=== PATIENT | male | born 1955 | race African-American/Black ===

== ENCOUNTER → 2023-09-24 | Outpatient (CLI) | payer MEDICARE, SELFPAY ==
[2023-09-24 10:40] LABS: Lipase 66 U/L (13-75)
--- OUTSIDE RECORDS SUMMARY | 2023-09-24 19:06 | XMS RPT_ITS | CCD ---
Author Name Unknown Address [address] [place] [address] Organization [facility] Care Team Providers Care Dental Scheduler Name Role Phone Yelena Merrill MD Primary Care Provider Yelena Merrill Unavailable MD ROBERT ROJAS Referring Unavailabl MD ROBERT Hines Attending Unavailabl YELENA Larson Primary Care Unavailab YELENA Yoder Referring Unavailab YELENA Yoder Referring Unavailab YELENA Yoder Primary Care Unavailab YELENA Yoder Attending Unavailab YELENA Yoder Primary Care Unavailab YELENA Yoder Primary Care Unavailab CHANTELLE Alvarado Referring Unavailable YELENA MERRILL Primary Care Unavailab CHANTELLE Alvarado Attending Unavailable YELENA MERRILL Primary Care Unavailab YELENA Yoder Attending Unavailab YELENA Yoder Primary Care Unavailab YELENA Yoder Attending Razaab taina Allergies Allergy Classification Reported Allergen(s) Allergy Type Date of Onset Reaction(s) Facility (15 sources) Lisinopril; Translations: [LISINOPRIL] Drug Allergy 10-28-2012 Cough [facility] Work Phone: (15 sources) metFORMIN; Translations: [METFORMIN] Drug Allergy 10-28-2012 Diarrhea, GI Upset [facility] Work Phone: Medications Current Medications Medication Drug Class(es) Dates Sig (Normalized) Sig (Original) allopurinol 300 mg oral tablet (14 sources) Xanthine Oxidase Inhibitor Start: 02-20-2023 End: 2023 take 1 tablet by mouth once daily allopurinol (ZYLOPRIM) 300 mg tablet Take 1 tablet by mouth once daily. 90 tablet 1 02/20/2023 2023 Active Completed/Discontinued Medications Medication Drug Class(es) Dates Sig (Normalized) Sig (Original) acetaminophen 500 mg oral capsule (14 sources) Acetaminophen 50 0 mg cap Take 500 mg by mouth as needed. 0 Active Problems Active Problems Problem Classification Problem Date Documented Da te Episodic/Chronic Acute and unspecified renal failure (2 sources) Acute injury of kidney; Translations: [Acute kidney failure, unspecified] Onset: 08-18-2023 Episodic Diabetes mellitus without complication (18 sources) Type 2 diabetes mellitus; Translations: [Type 2 diabetes mellitus without complications] Onset: 01-06-2023 Chronic Disorders of lipid metabolism (16 sources) Hyperlipidemia; Translations: [Hyperlipidemia, unspecified] Onset: 01-06-2023 Chronic Essential hypertension (17 sources) Essential hypertension; Translations: [Essential (primary) hypertension] Onset: 01-06-2023 Chronic Genitourinary symptoms and ill-defined conditions (1 source) Nocturia; Translations: [Nocturia] Episodic Gout and other crystal arthropathies (16 sources) Chronic gout without tophus; Translations: [Chronic gout, unspecified, without tophus (tophi)] Onset: 01-06-2023 Chronic Hyperplasia of prostate (15 sources) Benign prostatic hyperplasia; Translations: [Benign prostatic hyperplasia without lower urinary tract symptoms] Onset: 01-06-2023 01-06-2023 Chronic Open wounds of extremities (4 sources) Injury of lower extremity; Translations: [Unspecified open wound, right lower leg, initial encounter] 03-19-2023 Episodic Other connective tissue disease (1 source) Pain of right lower leg; Translations: [Pain in right lower leg] 04-03-2023 Episodic Other diseases of veins and lymphatics (13 sources) Stasis dermatitis; Translations: [Venous insufficiency (chronic) (peripheral)] Onset: 03-19-2023 03-19-2023 Episodic Other liver diseases (2 sources) Alkaline phosphatase raised; Translations: [Abnormal levels of other serum enzymes] Episodic Other male genital disorders (1 source) Male erectile dysfunction, unspecified; Translations: [Erectile dysfunction] Chronic Other nutritional; endocrine; and metabolic disorders (15 sources) Obesity; Translations: [Other obesity due to excess calories] Onset: 01-06-2023 Chronic Other nutritional; endocrine; and metabolic disorders (1 source) Other obesity due to excess calories; Translations: [Class 1 obesity due to excess calories with serious comorbidity and body mass index (BMI) of 33.0 to 33.9 in adult] Onset: 01-06-2023 Chronic Other nutritional; endocrine; and metabolic disorders (1 source) Body mass index (BMI) 33.0-33.9, adult; Translations: [Class 1 obesity due to excess calories with serious comorbidity and body mass index (BMI) of 33.0 to 33.9 in adult] Onset: 01-06-2023 Chronic Other skin disorders (2 sources) Eruption; Translations: [Rash and other nonspecific skin eruption] Episodic Phlebitis; thrombophlebitis and thromboembolism (18 sources) Chronic deep venous thrombosis of lower extremity; Translations: [Chronic embolism and thrombosis of unspecified deep veins of unspecified lower extremity] Onset: 01-06-2023 Chronic Residual codes; unclassified (15 sources) Obstructive sleep apnea syndrome; Translations: [Obstructive sleep apnea (adult) (pediatric)] Onset: 01-06-2023 Chronic Residual codes; unclassified (2 sources) Obstructive sleep apnea (adult) (pediatric); Translations: [RANDOLPH (obstructive sleep apnea)] Onset: 01-06-2023 Chronic Residual codes; unclassified (1 source) Dependence on other enabling machines and devices; Translations: [RANDOLPH on CPAP] Onset: 01-06-2023 Chronic Past or Other Problems Problem Classification Problem Date Documented Date Episodic/Chronic Fluid and electrolyte disorders (2 sources) Hyperkalemia; Translations: [Hyperkalemia] Onset: 01-20-2023 Episodic Other connective tissue disease (16 sources) Swelling of right lower limb; Translations: [Other specified soft tissue disorders] Onset: 01-06-2023 Episodic Other connective tissue disease (1 source) Other specified soft tissue disorders; Translations: [Right leg swelling] Onset: 01-06-2023 Episodic Other diseases of veins and lymphatics (1 source) Venous insufficiency (chronic) (peripheral); Translations: [Venous stasis dermatitis of right lower extremity] Onset: 03-19-2023 Episodic Other liver diseases (1 source) Abnormal levels of other serum enzymes; Translations: [Elevated alkaline phosphatase level] Onset: 01-20-2023 Episodic Other screening for suspected conditions (not mental disorders or infectious disease) (20 sources) Raised prostate specific antigen; Translations: [Elevated prostate specific antigen [PSA]] Onset: 01-06-2023 Episodic Other skin disorders (1 source) Rash and other nonspecific skin eruption; Translations: [Rash] Onset: 01-06-2023 Episodic Results Test Name Value Interpretation Reference Range Facil ity Vital Signs Date Time Vital Sign Value Performing Clinician Faci lity 03-19-2023 16:01-0400 Body height 182.9 cm Yelena Merrill MD Work Phone: [facility] 03-19-2023 16:01-0400 Body weight 109.32 kg Yelena Merrill MD Work Phone: [facility] 03-19-2023 16:01-0400 Diastolic blood pressure 82 mm[Hg] Yelena Merrill MD Work Phone: [facility] 03-19-2023 16:01-0400 Heart rate 76 /min Yelena Merrill MD Work Phone: [facility] 03-19-2023 16:01-0400 Respiratory rate 16 /min Yelena Merrill MD Work Phone: [facility] 03-19-2023 16:01-0400 Systolic blood pressure 126 mm[Hg] Yelena Merrill MD Work Phone: [facility] 02-12-2023 15:05-0400 Body height 180.34 cm Yelena Merrill Work Phone: [facility] Work Phone: 02-12-2023 15:05-0400 Body mass index (BMI) [Ratio] 36.26 kg/m2 Yelena Merrill Work Phone: [facility] Work Phone: 02-12-2023 15:05-0400 Body surface area Derived from formula 2.36 m2 Yelena Merrill Work Phone: [facility] Work Phone: 02-12-2023 15:05-0400 Body weight 117.94 kg Yelena Merrill Work Phone: [facility] Work Phone: 02-12-2023 15:05-0400 Respiratory rate 16 /min Yelena Merrill Work Phone: [facility] Work Phone: 02-04-2023 16:33-0400 Body weight 111.04 kg Yelena Merrill MD Work Phone: [facility] 02-04-2023 16:33-0400 Diastolic blood pressure 80 mm[Hg] Yelena Merrill MD Work Phone: [facility] 02-04-2023 16:33-0400 Heart rate 77 /min Yelena Merrill MD Work Phone: [facility] 02-04-2023 16:33-0400 Respiratory rate 16 /min Yelena Merrill MD Work Phone: [facility] 02-04-2023 16:33-0400 SaO2% (BldA) [Mass fraction] 98 % Yelena Merrill MD Work Phone: [facility] 02-04-2023 16:33-0400 Systolic blood pressure 136 mm[Hg] Yelena Merrill MD Work Phone: [facility] 01-06-2023 13:27-0400 Body height 182.9 cm Yelena Merrill MD Work Phone: [facility] 01-06-2023 13:27-0400 Body weight 112.4 kg Yelena Merrill MD Work Phone: [facility] 01-06-2023 13:27-0400 Diastolic blood pressure 76 mm[Hg] Yelena Merrill MD Work Phone: [facility] 01-06-2023 13:27-0400 Heart rate 64 /min Yelena Merrill MD Work Phone: [facility] 01-06-2023 13:27-0400 Respiratory rate 16 /min Yelena Merrill MD Work Phone: [facility] 01-06-2023 13:27040 SaO2% (BldA) [Mass fraction] 97 % Yelena Merrill MD Work Phone: [facility] 01-06-2023 13:27-0400 Systolic blood pressure 138 mm[Hg] Yelena Merrill MD Work Phone: [facility] Encounters Encounter Date Encounter Type Care Provider Facility Start: 08-18-2023 End: 2023 ambulatory YELENA MERRILL Facility:[facility] Start: 06-09-2023 Refill Yelena Merrill MD Work Phone: [facility] [place] Plan of Treatment Date Care Activity Detail Author Start: 01-07-2028 PROSTATE CANCER SCRE ENING DISCUSSION PROSTATE CANCER SCREENING DISCUSSION [facility] Start: 01-21-2026 COLOGUARD (FIT-DNA) COLOGUARD (FIT-D NA) [facility] Start: 01-21-2026 COLORECTAL CANCER SCREENING COLORECTAL CANCER SCREENING [facility] Start: 04-21-2024 Hepatitis C antibody , confirmatory test Dilated Retinal Exam [facility] Start: 03-19-2024 ANNUAL PCP TEAM FIRE REGULATOR GILA DISEASE VISIT ANNUAL PCP TEAM CHRONIC DISEASE VISIT [facility] Start: 02-05-2024 3 comp foot exam completed DIABETIC FOOT EXAM [facility] Start: 02-05-2024 ANNUAL PCP TEAM FIRE REGULATOR GILA DISEASE VISIT ANNUAL PCP TEAM CHRONIC DISEASE VISIT [facility] Start: 01-07-2024 ANNUAL PCP TEAM FIRE REGULATOR GILA DISEASE VISIT ANNUAL PCP TEAM CHRONIC DISEASE VISIT [facility] Start: 01-07-2024 COVID-19 VACCINE (#1) COVID-19 VACCI NE (#1) [facility] Payers Date Payer Category Payer Medicare DEVOTED MEDICARE [facility] HMO [id number] 2022-Present [phone] [address] [place] [address] HMO [id number] 2022 Unknown [id number] 1955 Unknown [id number] Unknown [employer]^L^[id number] Social History Date Type Detail Facility Start: 01-06-2023 Tobacco smoking stat us NHIS Never smoked tobacco [facility] Start: 01-06-2023 Tobacco use and exposure Smokeless tobacco non-user [facility] Start: 01-06-2023 End: 03-19-2023 Alcohol intake Ex-drinker (finding) [facility] Start: 1955 Sex Assigned At Male [facility] Start: 01-06-2023 End: 02-04-2023 History of Social function [facility] Work Phone: Start: 01-06-2023 End: 02-04-2023 Tobacco use panel [facility] Work Phone: Adult Depression Screening Assessment 0 [facility] Work Phone: Start: 01-06-2023 Gender identity Identifies as male gender (finding) [facility] Start: 01-06-2023 Sexual orientation Heterosexual (fin ding) [facility] Medical Equipment Procedure Code Equipment Code Equipment Origin al Text Equipment Identifier Dates Start: 01-06-2023 End: 05-06-2023 Clinical Notes 08-16-2022 to 08-18-2023 Telephone Encounter - Debora Knox LPN - 06/09/2023 2:02 PM ESTTelephone Encounter - Chiara Luz LPN - 05/06/2023 10:08 AM Yelena Pope MD - 03/19/2023 4:13 PM EDT Note Date & Type Note Facility 08-18-2023 Note HNO ID: [id number] Author: CHANTELLE DU APRN.CUSTOMER ACCOUNT COORDINATOR Service: ? Author Type: Nurse Practitioner Type: Progress Notes Filed: 08/18/2023 16:01 Note Text: 08/18/2023 Patient presents with: F/U 6 months SUBJECTIVE: This is a 67 year old that is here today for Above Complaints. DIABETES MELLITUS: Since our last visit he denies excessive thirst or increased frequency of urination, chest pain or dyspnea , numbness, tingling or pain in extremities, new or unusual visual symptoms, low sugar/hypoglycemic reactions, weight loss/gain, lightheadedness/dizziness, and bowel changes/loose stools. Follows a diabetic diet most of the time. He is compliant with medication(s) and is tolerating med(s) without any side effects. He reports checking his glucose on a twice a day schedule with sugars in the <200 range. Patient's last HgA1C was Hemoglobin A1C (%) Date Value 01/06/2023 6.8 05/08/2022 6.5 ) Last Ophthalmology exam was within the past 12 months HTN: Patient is compliant with meds Yes Monitors bp at home: Yes. Denies side effects: Yes. Chest pain: No. Dyspnea: No. Edema: Yes-chronic RLE Palpitations: No. Syncope: No. Headache: No. Dizziness: No. HYPERLIPIDEMIA: Patient is taking medications: Yes. Patient is watching diet: Yes. Patient denies myalgias: Yes. Patient denies gi upset: Yes BPH/Elevated PSA: followed up with Dr. Rojas, urologist on 02/12/2023. Patient reports he will just monitor his PSA level. Reports he will need 6 month follow-up. Hx of DVT. Taking eliquis as prescribed without side effects. Denies bleeding symptoms RANDOLPH: needs order for supplies. Has not been using due to needing supplies Gout: taking allopurinol as prescribed without side effects. No gout flares Wound to right lower leg has healed. Were not able to get wound care approved through insurance. Did complete venous ultrasound at however it does not look like results were ever received. Had previously been ordered Right quadrat ultrasound due to elevated alkaline phos and US of kidney and bladder due worsening kidney function however he never completed them PAST MEDICAL HISTORY Diagnosis Date BPH (benign prostatic hyperplasia) Chronic deep vein thrombosis (DVT) (HCC) right LE. on anticoagulation Chronic stasis dermatitis of right lower extremity Diabetes mellitus type II (HCC) Elevated prostate specific antigen (PSA) Essential hypertension Gout History of DVT (deep vein thrombosis) 2020 Right leg Hyperlipidemia Obesity RANDOLPH on CPAP Right leg swelling Chronic since DVT 2020 Venous stasis dermatitis of right lower extremity ALLERGIES Metformin and Lisinopril MEDICATIONS Current Outpatient Medications Medication Sig apixaban (ELIQUIS) 2.5 mg tab(s) Take 1 tablet by mouth two times a day. cyclobenzaprine (FLEXERIL) 10 mg tablet Take 1 tablet by mouth two times a day as needed for muscle spasm. candesartan (ATACAND) 16 mg tablet Take 1 tablet by mouth once daily. blood sugar diagnostic (BLOOD GLUCOSE TEST) test strip Test blood sugar(s) 1-2 times daily. Dx: Type 2 DM - Controlled E11.9 Insulin: No labetalol (TRANDATE) 200 mg tablet Take 1 tablet by mouth once daily. allopurinol (ZYLOPRIM) 300 mg tablet Take 1 tablet by mouth once daily. glipiZIDE (GLUCOTROL) 10 mg tablet Take 1 tablet by mouth twice daily before meals. atorvastatin (LIPITOR) 40 mg tablet Take 40 mg by mouth once daily. MULTIVIT [id number] 1-DHA ORAL Take by mouth. ubidecarenone/vitamin E mixed (COQ10 SG 100 ORAL) Take 1 capsule by mouth. 300mg daily Acetaminophen 500 mg cap Take 500 mg by mouth as needed. saw palmetto 320 mg capsule Take 1 capsule by mouth once daily. CHONDROITIN SULFATE A ORAL Take by mouth. Ascorbic Acid (VITAMIN C) 500 mg chew Take 500 mg by mouth once daily. sour wood extract (TART WOOD EXTRACT ORAL) Take 3,000 mg by mouth once daily. COLLAGEN MISC 0.5 Scoops once daily. Lancets lancets Test blood sugar(s) 1 times daily. Dx: Type 2 DM - Controlled E11.9 Insulin: No CPAP/BIPAP/OTHER Type .CPAPSettings into a note to see current settings/supplies/DME information. No current facility-administered medications for this visit. Medications and allergies reviewed by this provider. SOCIAL HISTORY Social History Tobacco Use Smoking status: Never Smokeless tobacco: Never Substance Use Topics Alcohol use: Not Currently Drug use: Never REVIEW OF SYSTEMS All other reviewed and negative other than HPI. OBJECTIVE: BP 136/88 Pulse 81 Resp 16 Wt 113 kg (249 lb 3.2 oz) SpO2 94% BMI 33.80 kg/m? . Vital signs reviewed by this provider. APPEARANCE Well appearing, alert, in no acute distress, well-hydrated, well nourished. EYES conjunctiva and sclera normal. HEART RRR with normal S1 and S2, no murmurs, no gallops, no JVD appreciated LUNG clear to auscultation. No wheezes, rhonchi or rales EXTREMITIES Chronic edema to right lower extr (more content not included)... [facility] 06-09-2023 Miscellaneous Notes reports pt only takes the Flexeril up to 2 times daily if needed. Debora Knox LPN Patient has been identified by name and date of : Yes, Provider Dr. Merrill Date 06/09/23 Time 2:04 pm Spouse phones for refill(s): Requested Prescriptions Pending Prescriptions Disp Refills apixaban (ELIQUIS) 2.5 mg tab(s) 30 tablet 5 Sig: Take 1 tablet by mouth two times a day. cyclobenzaprine (FLEXERIL) 10 mg tablet 60 tablet 3 Sig: Take by mouth two times a day as needed for muscle spasm. Date of last office visit in primary care: 03/19/2023 Date of next office visit in primary care: 08/18/2023 Last 2 Encounter Wt Readings: Date: Wt: 03/19/2023 109.3 kg (241 lb) 02/04/2023 111 kg (244 lb 12.8 oz) Previous labs/tests for medication: Not applicable Please advise. Thank you. Debora Knox LPN. documented in this encounter [facility] 05-06-2023 Miscellaneous Notes Message left on patient's VM advising rx for test strips sent and would need an OV to discuss BPH rx for new medication. Rx sent for test strips. Needs OV if he wants to discuss new rx for BPH so we can go over options, risks, and benefits. documented in this encounter [facility] 04-18-2023 Miscellaneous Notes Patient sent [employer] message that they are going back through insurance and resubmitting another prior auth so they can go through [facility]. New order placed. Please fax as requested. Spoke with pt's and he needs a new referral to out of network wound care. The old referral is for [facility] and this will not work. Please fax new one to [facility]. Please call when this has been done. So she can call to get apt. Debora Knox LPN Left vm for patient to return call to nurse for provider's message. Im not sure what he needs for this. We can fax the previous referral to [place] if that is what is required. Spouse returned call and given provider's message below with verbalized understanding. asking pcp office to file a new out of network authorization for [facility]. Please advise . Reviewed. Spoke ou wound center and they advised our initial referral for [facility] is approved but insurance itself is not approving providers at wound center all providers are out of network and do not take devoted medicare. Patient can not be seen there since not accepted for that department with specific providers. Next option is patient going to [facility]. No peer to peer to be done since providers out of network Left message please advise above and help schedule with amada Sanchez Ma I did not receive anything about peer to peer for this. Can they fax what they need completed. Patient Bianca calling having issues with [facility] can not get appt for set up. She is getting the run around, the insurance [employer] gave them special permission to go since out of network, now Wound Center is saying need peer to peer done. spoke to Rebecca and Olayinka told her they would have to pay brewer at [facility], can not get them to call back at all. Please advise documented in this encounter [facility] 04-18-2023 Miscellaneous Notes Rx sent as requested. Patient phones requesting refills as follows: Requested Prescriptions Pending Prescriptions Disp Refills mupirocin (BACTROBAN) 2 % ointment 30 g 0 Sig: Apply to affected area twice daily for 14 days. [facility]WIN 03/19/23 NOV 08/18/23 Please review and advise. Chiara Luz LPN documented in this encounter [facility] 04-03-2023 Miscellaneous Notes Revised order forwarded to rosendo at [facility] as requested. Order approved. Rosendo from pre registration at [place] calling and states that pt is scheduled for a venous ultrasound on FridayApr 07. With the 2 current diagnoses on the order, ultrasound will not be covered. Viewed Dr. Merrill's office note on 03/19 and noted patient has both pain and swelling in his right lower leg. Added those two codes and now will be covered. Order pended. Please sign order and fax back to Rosendo at [phone]. documented in this encounter [facility] 03-20-2023 Miscellaneous Notes There is nothing else you need to do. The order has been sent. Do I need to do anything else for this then? reports her insurance tells her they will cover [facility] Wound Center, since nearest in network center [place] and if pcp writes medically necessary on insurance referral. Placed insurance referral. Faxed order and face sheet to [facility] at fax # [phone]. Emailed referral information to [facility] and pre-access. documented in this encounter [facility] 03-19-2023 Note HNO ID: [id number] Author: Yelena Merrill MD Service: ? Author Type: Physician Type: Progress Notes Filed: 03/19/2023 4:48 PM Note Text: Chief Complaint Patient presents with: Wound Check HPI Julian Markham Sr. is a 67 year old male who presents here today for Above Complaints.. Patient complaining of right LE seeping serous fluid which started a few days after our last OV. No ulceration from the area, just has faint red spot which slowly seeps yellow/clear fluid. Has pain in the area that feels like burning and keeps him up at night. Has tried treating with aquaphor and clorimazole cream without improvement. Using tylenol for pain. Denies fever/chills, spreading redness, streaking, warmth to touch, purulent drainage. Past medical history, appointments, medications, allergies reviewed. Previous Medical History PAST MEDICAL HISTORY Diagnosis Date BPH (benign prostatic hyperplasia) Chronic deep vein thrombosis (DVT) (HCC) right LE. on anticoagulation Diabetes mellitus type II (HCC) Elevated prostate specific antigen (PSA) Essential hypertension Gout History of DVT (deep vein thrombosis) 2020 Right leg Hyperlipidemia Obesity RANDOLPH on CPAP Right leg swelling Chronic since DVT 2020 Venous stasis dermatitis of right lower extremity Previous Surgical History PAST SURGICAL HISTORY Procedure Laterality Date PAST SURGICAL HISTORY OF Right 1990 knee surgery for gout PAST SURGICAL HISTORY OF 2019 Biopsy of prostate-benign Family History FAMILY HISTORY Problem Relation Age of Onset Gout Mother Diabetes Mother Hypertension Mother Hyperlipidemia Mother Stroke Mother Heart Attack Maternal Grandfather No Known Problems Daughter No Known Problems Daughter Autism Son Patient Allergies ALLERGIES Allergen Reactions Metformin Diarrhea, GI Upset diarrhea Lisinopril Cough Current Medications Current Outpatient Medications on File Prior to Visit Medication Sig blood sugar diagnostic (CONTOUR NEXT TEST STRIPS) test strip Use as instructed labetalol (TRANDATE) 200 mg tablet Take 1 tablet by mouth once daily. allopurinol (ZYLOPRIM) 300 mg tablet Take 1 tablet by mouth once daily. glipiZIDE (GLUCOTROL) 10 mg tablet Take 1 tablet by mouth twice daily before meals. candesartan (ATACAND) 16 mg tablet Take 16 mg by mouth once daily. cyclobenzaprine (FLEXERIL) 10 mg tablet Take by mouth three times daily as needed for muscle spasm. apixaban (ELIQUIS) 2.5 mg tab(s) Take by mouth twice daily. atorvastatin (LIPITOR) 40 mg tablet Take 40 mg by mouth once daily. MULTIVIT [id number] 1-DHA ORAL Take by mouth. ubidecarenone/vitamin E mixed (COQ10 SG 100 ORAL) Take 1 capsule by mouth. 300mg daily Acetaminophen 500 mg cap Take 500 mg by mouth as needed. saw palmetto 320 mg capsule Take 1 capsule by mouth once daily. CHONDROITIN SULFATE A ORAL Take by mouth. Ascorbic Acid (VITAMIN C) 500 mg chew Take 500 mg by mouth once daily. sour wood extract (TART WOOD EXTRACT ORAL) Take 3,000 mg by mouth once daily. COLLAGEN MISC 0.5 Scoops once daily. blood sugar diagnostic (BLOOD GLUCOSE TEST) test strip Test blood sugar(s) 1 times daily. Dx: Type 2 DM - Controlled E11.9 Insulin: No Lancets lancets Test blood sugar(s) 1 times daily. Dx: Type 2 DM - Controlled E11.9 Insulin: No CPAP/BIPAP/OTHER Type .CPAPSettings into a note to see current settings/supplies/DME information. No current facility-administered medications on file prior to visit. Social History Social History Tobacco Use Smoking status: Never Smokeless tobacco: Never Substance Use Topics Alcohol use: Not Currently Drug use: Never Review of Symptoms REVIEW OF SYSTEMS See HPI EXAM: BP 126/82 Pulse 76 Resp 16 Ht 182.9 cm (6') Wt 109.3 kg (241 lb) BMI 32.69 kg/m? General Appearance: Well appearing, alert, in no acute distress, well-hydrated, well nourished.. Skin: Stasis dermatitis of his left lower leg 2/2 previous DVT with 7 x 8 cm area of pink colored skin which is slowly draining serous fluid. TTP without warmth to touch. No cellulitis or abscess noted. No streaking. Health Maintenance List DILATED RETINAL EXAM Never done BP CONTROLLED (<130/80) Never done ADVANCE DIRECTIVE DISCUSSION Never done DTAP,TDAP,TD(1 - Tdap) due on 01/07/2024 HEPATITIS C SCREENING due on 01/07/2024 HIV SCREENING due on 01/07/2024 SHINGRIX VACCINE(1 of 2) due on 01/07/2024 COVID-19 VACCINE(1) due on 01/07/2024 PNEUMOCOCCAL: 65+(1 - PCV) due on 01/07/2024 INFLUENZA(1) due on 03/28/2023 HBA1C due on 07/08/2023 URINE ALBUMIN:CREATININE RATIO due on 01/07/2024 LDL CHOLESTEROL due on 01/07/2024 DIABETIC FOOT EXAM due on 02/05/2024 ANNUAL PCP TEAM CHRONIC DISEASE VISIT due on 02/05/2024 COLORECTAL CANCER SCREENING due on 01/21/2026 PROSTATE CANCER SCREENING DISCUSSION due on 01/07/2028 DEPRESSION ASSESSMENT Completed ASSESSMENT/PLAN: 1. Venous (more content not included)... [facility] 03-19-2023 History of Presen t illness Narrative Chief Complaint Patient presents with: Wound Check HPI Julian Markham Sr. is a 67 year old male who presents here today for Above Complaints.. Patient complaining of right LE seeping serous fluid which started a few days after our last OV. No ulceration from the area, just has faint red spot which slowly seeps yellow/clear fluid. Has pain in the area that feels like burning and keeps him up at night. Has tried treating with aquaphor and clorimazole cream without improvement. Using tylenol for pain. Denies fever/chills, spreading redness, streaking, warmth to touch, purulent drainage. Past medical history, appointments, medications, allergies reviewed. Previous Medical History PAST MEDICAL HISTORY Diagnosis Date BPH (benign prostatic hyperplasia) Chronic deep vein thrombosis (DVT) (HCC) right LE. on anticoagulation Diabetes mellitus type II (HCC) Elevated prostate specific antigen (PSA) Essential hypertension Gout History of DVT (deep vein thrombosis) 2020 Right leg Hyperlipidemia Obesity RANDOLPH on CPAP Right leg swelling Chronic since DVT 2020 Venous stasis dermatitis of right lower extremity Previous Surgical History PAST SURGICAL HISTORY Procedure Laterality Date PAST SURGICAL HISTORY OF Right 1990 knee surgery for gout PAST SURGICAL HISTORY OF 2019 Biopsy of prostate-benign Family History FAMILY HISTORY Problem Relation Age of Onset Gout Mother Diabetes Mother Hypertension Mother Hyperlipidemia Mother Stroke Mother Heart Attack Maternal Grandfather No Known Problems Daughter No Known Problems Daughter Autism Son Patient Allergies ALLERGIES Allergen Reactions Metformin Diarrhea, GI Upset diarrhea Lisinopril Cough Current Medications Current Outpatient Medications on File Prior to Visit Medication Sig blood sugar diagnostic (CONTOUR NEXT TEST STRIPS) test strip Use as instructed labetalol (TRANDATE) 200 mg tablet Take 1 tablet by mouth once daily. allopurinol (ZYLOPRIM) 300 mg tablet Take 1 tablet by mouth once daily. glipiZIDE (GLUCOTROL) 10 mg tablet Take 1 tablet by mouth twice daily before meals. candesartan (ATACAND) 16 mg tablet Take 16 mg by mouth once daily. cyclobenzaprine (FLEXERIL) 10 mg tablet Take by mouth three times daily as needed for muscle spasm. apixaban (ELIQUIS) 2.5 mg tab(s) Take by mouth twice daily. atorvastatin (LIPITOR) 40 mg tablet Take 40 mg by mouth once daily. MULTIVIT [id number] 1-DHA ORAL Take by mouth. ubidecarenone/vitamin E mixed (COQ10 SG 100 ORAL) Take 1 capsule by mouth. 300mg daily Acetaminophen 500 mg cap Take 500 mg by mouth as needed. saw palmetto 320 mg capsule Take 1 capsule by mouth once daily. CHONDROITIN SULFATE A ORAL Take by mouth. Ascorbic Acid (VITAMIN C) 500 mg chew Take 500 mg by mouth once daily. sour wood extract (TART WOOD EXTRACT ORAL) Take 3,000 mg by mouth once daily. COLLAGEN MISC 0.5 Scoops once daily. blood sugar diagnostic (BLOOD GLUCOSE TEST) test strip Test blood sugar(s) 1 times daily. Dx: Type 2 DM - Controlled E11.9 Insulin: No Lancets lancets Test blood sugar(s) 1 times daily. Dx: Type 2 DM - Controlled E11.9 Insulin: No CPAP/BIPAP/OTHER Type .CPAPSettings into a note to see current settings/supplies/DME information. No current facility-administered medications on file prior to visit. Social History Social History Tobacco Use Smoking status: Never Smokeless tobacco: Never Substance Use Topics Alcohol use: Not Currently Drug use: Never Review of Symptoms REVIEW OF SYSTEMS See HPI EXAM: BP 126/82 Pulse 76 Resp 16 Ht 182.9 cm (6') Wt 109.3 kg (241 lb) BMI 32.69 kg/m General Appearance: Well appearing, alert, in no acute distress, well-hydrated, well nourished.. Skin: Stasis dermatitis of his left lower leg 2/2 previous DVT with 7 x 8 cm area of pink colored skin which is slowly draining serous fluid. TTP without warmth to touch. No cellulitis or abscess noted. No streaking. Health Maintenance List DILATED RETINAL EXAM Never done BP CONTROLLED (<130/80) Never done ADVANCE DIRECTIVE DISCUSSION Never done DTAP,TDAP,TD(1 - Tdap) due on 01/07/2024 HEPATITIS C SCREENING due on 01/07/2024 HIV SCREENING due on 01/07/2024 SHINGRIX VACCINE(1 of 2) due on 01/07/2024 COVID-19 VACCINE(1) due on 01/07/2024 PNEUMOCOCCAL: 65+(1 - PCV) due on 01/07/2024 INFLUENZA(1) due on 03/28/2023 HBA1C due on 07/08/2023 URINE ALBUMIN:CREATININE RATIO due on 01/07/2024 LDL CHOLESTEROL due on 01/07/2024 DIABETIC FOOT EXAM due on 02/05/2024 ANNUAL PCP TEAM CHRONIC DISEASE VISIT due on 02/05/2024 COLORECTAL CANCER SCREENING due on 01/21/2026 PROSTATE CANCER SCREENING DISCUSSION due on 01/07/2028 DEPRESSION ASSESSMENT Completed ASSESSMENT/PLAN: 1. Venous stasis dermatitis of right lower extremity - ICD9: 454.1, ICD10: I87.2 (primary diagnosis) Wound of right LE 2/2 stasis dermatitis and chronic leg swelling. States he is unable to wear compression stockings and has not been elevating his leg at home. Will start on bactroban ointment BID and refer to wound care for further evaluation. Discussed covering with non adherent pad at work to prevent contamination and worsening infection. Red flags for re-assessment reviewed with patient in detail. - MUPIROCIN 2 % TOPICAL OINTMENT - CONSULT TO SKIN CARE TEAM - US VENOUS REFLUX BILATERAL 2. Wound of right lower extremity, initial encounter - ICD9: 894.0, ICD10: S81.801A See above. - MUPIROCIN 2 % TOPICAL OINTMENT - CONSULT TO SKIN CARE TEAM - US VENOUS REFLUX BILATERAL Yelena Merrill MD documented in this encounter [facility] 02-26-2023 Miscellaneous Notes Prescription for strips sent. Chantelle Du APRN.CUSTOMER ACCOUNT COORDINATOR Patient's spouse, Bianca calling today to request a prescription for test strips for testing 2 x/daily. Test strips are Contour Next. Please call prescription into [facility]. documented in this encounter [facility] 02-04-2023 Note HNO ID: [id number] Author: Yelena Merrill MD Service: ? Author Type: Physician Type: Progress Notes Filed: 02/04/2023 7:21 PM Note Text: Chief Complaint Patient presents with: Follow Up: DM HPI Julian Markham Sr. is a 67 year old male who presents here today for Above Complaints.. DIABETES MELLITUS: Mr. Markham was last seen 1 month ago. Since our last visit he denies excessive thirst or increased frequency of urination, numbness, tingling or pain in extremities, new or unusual visual symptoms, low sugar/hypoglycemic reactions, and weight loss/gain. Follows a diabetic diet some of the time. He is compliant with medication(s) and is tolerating med(s) without any side effects. He reports checking his glucose on a infrequent to not at all basis, but just got meter and supplies. Patient's last HgA1C was Hemoglobin A1C (%) Date Value 01/06/2023 6.8 05/08/2022 6.5 ) Last Ophthalmology exam was more than 12 months ago. Last Podiatry exam was more than 12 months ago. Right riley rash resolved with clotrimazole. No longer draining. Still wearing compression stockings on a daily basis. PSA elevated on last check. Has appointment with urology Dr. Zamora in [place] next week. Denies urinary symptoms. Past medical history, appointments, medications, allergies reviewed. Previous Medical History PAST MEDICAL HISTORY Diagnosis Date BPH (benign prostatic hyperplasia) Diabetes mellitus type II (HCC) Elevated prostate specific antigen (PSA) Essential hypertension Gout History of DVT (deep vein thrombosis) 2020 Right leg Hyperlipidemia Obesity RANDOLPH on CPAP Right leg swelling Chronic since DVT 2020 Venous stasis dermatitis of right lower extremity Previous Surgical History PAST SURGICAL HISTORY Procedure Laterality Date PAST SURGICAL HISTORY OF Right 1990 knee surgery for gout PAST SURGICAL HISTORY OF 2019 Biopsy of prostate-benign Family History FAMILY HISTORY Problem Relation Age of Onset Gout Mother Diabetes Mother Hypertension Mother Hyperlipidemia Mother Stroke Mother Heart Attack Maternal Grandfather No Known Problems Daughter No Known Problems Daughter Autism Son Patient Allergies ALLERGIES Allergen Reactions Metformin Diarrhea, GI Upset diarrhea Lisinopril Cough Current Medications Current Outpatient Medications on File Prior to Visit Medication Sig candesartan (ATACAND) 16 mg tablet Take 16 mg by mouth once daily. cyclobenzaprine (FLEXERIL) 10 mg tablet Take by mouth three times daily as needed for muscle spasm. apixaban (ELIQUIS) 2.5 mg tab(s) Take by mouth twice daily. glipiZIDE (GLUCOTROL) 10 mg tablet Take 10 mg by mouth twice daily before meals. atorvastatin (LIPITOR) 40 mg tablet Take 40 mg by mouth once daily. labetalol (TRANDATE) 200 mg tablet Take 200 mg by mouth once daily. allopurinol (ZYLOPRIM) 300 mg tablet Take 300 mg by mouth once daily. MULTIVIT [id number] 1-DHA ORAL Take by mouth. ubidecarenone/vitamin E mixed (COQ10 SG 100 ORAL) Take 1 capsule by mouth. 300mg daily Acetaminophen 500 mg cap Take 500 mg by mouth as needed. saw palmetto 320 mg capsule Take 1 capsule by mouth once daily. CHONDROITIN SULFATE A ORAL Take by mouth. Ascorbic Acid (VITAMIN C) 500 mg chew Take 500 mg by mouth once daily. sour wood extract (TART WODO EXTRACT ORAL) Take 3,000 mg by mouth once daily. COLLAGEN MISC 0.5 Scoops once daily. blood sugar diagnostic (BLOOD GLUCOSE TEST) test strip Test blood sugar(s) 1 times daily. Dx: Type 2 DM - Controlled E11.9 Insulin: No Lancets lancets Test blood sugar(s) 1 times daily. Dx: Type 2 DM - Controlled E11.9 Insulin: No CPAP/BIPAP/OTHER Type .CPAPSettings into a note to see current settings/supplies/DME information. No current facility-administered medications on file prior to visit. Social History Social History Tobacco Use Smoking status: Never Smokeless tobacco: Never Substance Use Topics Alcohol use: Not Currently Drug use: Never Review of Symptoms REVIEW OF SYSTEMS GENERAL: No weight loss, malaise or fevers RESPIRATORY: Negative for cough, hemoptysis, wheezing, COPD, dyspnea or shortness of breath CARDIOVASCULAR: Negative for chest pain, leg swelling, hypertension, CHF or palpitations GI: No nausea, vomiting, or diarrhea SKIN: Negative for lesions, rash, and itching EXAM: BP 136/80 Pulse 77 Resp 16 Wt 111 kg (244 lb 12.8 oz) SpO2 98% BMI 33.20 kg/m? General Appearance: Well appearing, alert, in no acute distress, well-hydrated, well nourished.. Skin: rash on right riley resolved. Venous stasis changes below right knee. Lungs: Lungs clear to auscultation. No wheezing, rhonchi, rales.. Heart: RRR without murmur, gallop, or rubs. No ectopy. Abdomen: Normal abdominal exam, Abdomen soft, non-tender. Bowel sounds normal. No masses, organomegaly. Extremities: right leg swollen chronically. Feet: Shoes and socks re (more content not included)... [facility] 02-04-2023 History of Presen t illness Narrative Chief Complaint Patient presents with: Follow Up: DM HPI Julian Markham Sr. is a 67 year old male who presents here today for Above Complaints.. DIABETES MELLITUS: Mr. Markham was last seen 1 month ago. Since our last visit he denies excessive thirst or increased frequency of urination, numbness, tingling or pain in extremities, new or unusual visual symptoms, low sugar/hypoglycemic reactions, and weight loss/gain. Follows a diabetic diet some of the time. He is compliant with medication(s) and is tolerating med(s) without any side effects. He reports checking his glucose on a infrequent to not at all basis, but just got meter and supplies. Patient's last HgA1C was Hemoglobin A1C (%) Date Value 01/06/2023 6.8 05/08/2022 6.5 ) Last Ophthalmology exam was more than 12 months ago. Last Podiatry exam was more than 12 months ago. Right riley rash resolved with clotrimazole. No longer draining. Still wearing compression stockings on a daily basis. PSA elevated on last check. Has appointment with urology Dr. Zamora in [place] next week. Denies urinary symptoms. Past medical history, appointments, medications, allergies reviewed. Previous Medical History PAST MEDICAL HISTORY Diagnosis Date BPH (benign prostatic hyperplasia) Diabetes mellitus type II (HCC) Elevated prostate specific antigen (PSA) Essential hypertension Gout History of DVT (deep vein thrombosis) 2020 Right leg Hyperlipidemia Obesity RANDOLPH on CPAP Right leg swelling Chronic since DVT 2020 Venous stasis dermatitis of right lower extremity Previous Surgical History PAST SURGICAL HISTORY Procedure Laterality Date PAST SURGICAL HISTORY OF Right 1990 knee surgery for gout PAST SURGICAL HISTORY OF 2019 Biopsy of prostate-benign Family History FAMILY HISTORY Problem Relation Age of Onset Gout Mother Diabetes Mother Hypertension Mother Hyperlipidemia Mother Stroke Mother Heart Attack Maternal Grandfather No Known Problems Daughter No Known Problems Daughter Autism Son Patient Allergies ALLERGIES Allergen Reactions Metformin Diarrhea, GI Upset diarrhea Lisinopril Cough Current Medications Current Outpatient Medications on File Prior to Visit Medication Sig candesartan (ATACAND) 16 mg tablet Take 16 mg by mouth once daily. cyclobenzaprine (FLEXERIL) 10 mg tablet Take by mouth three times daily as needed for muscle spasm. apixaban (ELIQUIS) 2.5 mg tab(s) Take by mouth twice daily. glipiZIDE (GLUCOTROL) 10 mg tablet Take 10 mg by mouth twice daily before meals. atorvastatin (LIPITOR) 40 mg tablet Take 40 mg by mouth once daily. labetalol (TRANDATE) 200 mg tablet Take 200 mg by mouth once daily. allopurinol (ZYLOPRIM) 300 mg tablet Take 300 mg by mouth once daily. MULTIVIT [id number] 1-DHA ORAL Take by mouth. ubidecarenone/vitamin E mixed (COQ10 SG 100 ORAL) Take 1 capsule by mouth. 300mg daily Acetaminophen 500 mg cap Take 500 mg by mouth as needed. saw palmetto 320 mg capsule Take 1 capsule by mouth once daily. CHONDROITIN SULFATE A ORAL Take by mouth. Ascorbic Acid (VITAMIN C) 500 mg chew Take 500 mg by mouth once daily. sour wood extract (TART WOOD EXTRACT ORAL) Take 3,000 mg by mouth once daily. COLLAGEN MISC 0.5 Scoops once daily. blood sugar diagnostic (BLOOD GLUCOSE TEST) test strip Test blood sugar(s) 1 times daily. Dx: Type 2 DM - Controlled E11.9 Insulin: No Lancets lancets Test blood sugar(s) 1 times daily. Dx: Type 2 DM - Controlled E11.9 Insulin: No CPAP/BIPAP/OTHER Type .CPAPSettings into a note to see current settings/supplies/DME information. No current facility-administered medications on file prior to visit. Social History Social History Tobacco Use Smoking status: Never Smokeless tobacco: Never Substance Use Topics Alcohol use: Not Currently Drug use: Never Review of Symptoms REVIEW OF SYSTEMS GENERAL: No weight loss, malaise or fevers RESPIRATORY: Negative for cough, hemoptysis, wheezing, COPD, dyspnea or shortness of breath CARDIOVASCULAR: Negative for chest pain, leg swelling, hypertension, CHF or palpitations GI: No nausea, vomiting, or diarrhea SKIN: Negative for lesions, rash, and itching EXAM: BP 136/80 Pulse 77 Resp 16 Wt 111 kg (244 lb 12.8 oz) SpO2 98% BMI 33.20 kg/m General Appearance: Well appearing, alert, in no acute distress, well-hydrated, well nourished.. Skin: rash on right riley resolved. Venous stasis changes below right knee. Lungs: Lungs clear to auscultation. No wheezing, rhonchi, rales.. Heart: RRR without murmur, gallop, or rubs. No ectopy. Abdomen: Normal abdominal exam, Abdomen soft, non-tender. Bowel sounds normal. No masses, organomegaly. Extremities: right leg swollen chronically. Feet: Shoes and socks removed, No deformities, ulcers, calluses, normal distal pulses, and sensitive to 10 gm monofilament Health Maintenance List DILATED RETINAL EXAM Never done DIABETIC FOOT EXAM Never done BP CONTROLLED (<130/80) Never done ADVANCE DIRECTIVE DISCUSSION Never done DTAP,TDAP,TD(1 - Tdap) due on 01/07/2024 HEPATITIS C SCREENING due on 01/07/2024 HIV SCREENING due on 01/07/2024 SHINGRIX VACCINE(1 of 2) due on 01/07/2024 COVID-19 VACCINE(1) due on 01/07/2024 PNEUMOCOCCAL: 65+(1 - PCV) due on 01/07/2024 INFLUENZA(1) due on 03/28/2023 HBA1C due on 07/08/2023 URINE ALBUMIN:CREATININE RATIO due on 01/07/2024 LDL CHOLESTEROL due on 01/07/2024 ANNUAL PCP TEAM CHRONIC DISEASE VISIT due on 01/07/2024 COLORECTAL CANCER SCREENING due on 01/21/2026 PROSTATE CANCER SCREENING DISCUSSION due on 01/07/2028 DEPRESSION ASSESSMENT Completed Data reviewed Component Latest Ref Rng & Units 01/06/2023 01/20/2023 WBC 3.70 - 11.00 k/uL 9.20 RBC 4.20 - 6.00 m/uL 5.30 Hemoglobin 13.0 - 17.0 g/dL 14.5 Hematocrit 39.0 - 51.0 % 45.5 MCV 80.0 - 100.0 fL 85.8 MCH 26.0 - 34.0 pg 27.4 MCHC 30.5 - 36.0 g/dL 31.9 RDW-CV 11.5 - 15.0 % 14.6 Platelet Count 150 - 400 k/uL 213 MPV 9.0 - 12.7 fL 11.0 Neut% % 65.7 Abs Neut (ANC) 1.45 - 7.50 k/uL 6.04 Lymph% % 23.9 Abs Lymph 1.00 - 4.00 k/uL 2.20 Slope% % 7.2 Abs Slope <0.87 k/uL 0.66 Eosin% % 2.4 Abs Eosin <0.46 k/uL 0.22 Baso% % 0.5 Abs Baso <0.11 k/uL 0.05 Immature Gran % % 0.3 IMMATURE GRANS (ABS) <0.10 k/uL 0.03 NRBC /100 WBC 0.0 Absolute nRBC <0.01 k/uL <0.01 DTYPE Auto Protein, Total 6.3 - 8.0 g/dL 7.7 Albumin 3.9 - 4.9 g/dL 4.6 Calcium 8.5 - 10.2 mg/dL 10.1 Bilirubin, Total 0.2 - 1.3 mg/dL 0.9 Alkaline Phosphatase 38 - 113 U/L 216 (H) 191 (H) AST 14 - 40 U/L 25 ALT 10 - 54 U/L 26 Glucose 74 - 99 mg/dL 112 (H) BUN 9 - 24 mg/dL 23 Creatinine 0.73 - 1.22 mg/dL 1.39 (H) Sodium 136 - 144 mmol/L 142 Potassium 3.7 - 5.1 mmol/L 5.3 (H) 4.8 Chloride 97 - 105 mmol/L 106 (H) CO2 22 - 30 mmol/L 25 Anion Gap 9 - 18 mmol/L 11 eGFR >=60 mL/min/1.73m 56 (L) Total Cholesterol, Nonfasting <200 mg/dL 155 Triglycerides, Nonfasting <150 mg/dL 58 HDL Cholesterol, Nonfasting >39 mg/dL 44 LDL Cholesterol, Nonfasting <100 mg/dL 99 Non HDL Cholesterol, Nonfasting <130 mg/dL 111 VLDL Cholesterol, Nonfasting <30 mg/dL 12 Total Chol/HDL Ratio, Nonfasting <5.10 mg/dL 3.52 LDL/HDL Ratio, Nonfasting <2.54 mg/dL 2.25 Alk Phos Bone % 10.7 - 68.3 % 21.8 Bone Fraction 12.9 - 52.6 U/L 41.6 Alk Phos Liver % 26.0 - 86.2 % 78.2 Liver Fraction 16.0 - 69.3 U/L 149.4 (H) Alk Phos Intestine % 0.0 - 24.2 % 0.0 Intestine Fraction 0.0 - 16.3 U/L 0.0 Creatinine, Ur Random (UCRR) 20.0 - 300.0 mg/dL 111.0 Albumin, Urine Random mg/L 16.0 Albumin/Creat Ratio <30 mg/g 14 Hemoglobin A1C 4.3 - 5.6 % 6.8 (H) Estimated Average Glucose mg/dL 148 PSA <2.60 ng/mL 5.60 (H) Uric Acid 4.0 - 8.1 mg/dL 3.6 (L) GGT 10 - 70 U/L 30 ASSESSMENT/PLAN: 1. Diabetes mellitus type II (HCC) - ICD9: 250.00, ICD10: E11.9 (primary diagnosis) - Controlled - Continue current medications - Blood glucose monitoring on a once daily schedule - Counseled on healthy diet and regular exercise - Discussed need for and benefit of weight loss. BMI 33.20 kg/(m^2) - Discussed diabetic education issues of diabetes complications and monitoring required, hypoglycemic/hyperglycemic symptoms, and medication-specific side effects and monitoring - Follow up in 6 months, sooner should any other issues arise. - GLIPIZIDE 10 MG TABLET - CONSULT TO OPHTHALMOLOGY 2. Essential hypertension - ICD9: 401.9, ICD10: I10 - Controlled - Continue current medications - Recommend home blood pressure monitoring, to bring results to next visit - Encouraged sodium restriction, DASH or Mediterranean diet - Recommend regular aerobic exercise 3. Elevated prostate specific antigen (PSA) - ICD9: 790.93, ICD10: R97.20 No change in urinary symptoms. Keep f/u with urology as scheduled. 4. Rash - ICD9: 782.1, ICD10: R21 Resolved. 5. Chronic deep vein thrombosis (DVT) of distal vein of right lower extremity (HCC) - ICD9: 453.52, ICD10: I82.5Z1 Continue anticoagulation and compression stockings daily for chronic right leg swelling. 6. Right leg swelling - ICD9: 729.81, ICD10: M79.89 See above. Yelena Merrill MD documented in this encounter [facility] 01-23-2023 Miscellaneous Notes Patient spouse notified of results, verbalizes understanding of instructions. She will tell Pt. Jackie Atwood LPN Alkaline phosphatase remains high with elevated liver fraction. Recommend liver US for further workup. Repeat potassium level normal. No changes to regimen. UA normal. documented in this encounter [facility] 01-08-2023 Miscellaneous Notes Pt asked me to speak to his Bianca about his lab results & instructions. And to also add to his chart that it is ok to speak to her in the future. Bianca was given results & instructions & voiced understanding. Chiara Yun LPN LM for patient to contact office to inform of the below. Rosendo Tucker MA Diabetes well controlled with A1c of 6.8. PSA elevated from 8 months ago, up to 5.6 which is abnormal. recommend referral to urology for further evaluation of possible prostate cancer. Alk phos elevated with normal LFTs. Will order additional testing to evaluate for bone or liver abnormality. Potassium level elevated, may be lab error. Recheck labs in 1-2 days. Kidney function has worsened and is into CKD stage III range. 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 Recommend avoidance of NSAIDs, low sodium diet <2,000 mg per day, and increased water intake. Will obtain urinalysis and kidney ultrasound for further workup. documented in this encounter [facility] 01-06-2023 Note HNO ID: [id number] Author: Yelena Merrill MD Service: ? Author Type: Physician Type: Progress Notes Filed: 01/06/2023 8:23 PM Note Text: Chief Complaint Patient presents with: Establish Care HPI Julian Markham . is a 67 year old AA male who presents here today for Above Complaints. Previous PCP Dr. Snyder in [place]. Moved to [place] in 2019 and had been doing telehealth visits until last April. Accompanied today by and son. Patient states that he has wound on right lower leg he would like checked today. Started about a month ago. States that the area is raw and will bleed onto his socks. Treating with hector butter. Denies fever/chills, spreading redness, purulent drainage, warmth to touch. Patient due for repeat labs to monitor his diabetes. States this was 6.5 on current regimen. Taking Glipizide BID as directed. Got diarrhea with metformin, so has not been on this. Not checking sugars on a daily basis, needs supplies. History of RANDOLPH, but has not been on CPAP since 2012. States that he could not afford it before. states that he snores loudly at night. Denies daytime somnolence or apneic episodes. Requesting auto pap. Gout: no flares in more than a year with Allopurinol and tart wood extract. History of DVT in right lower leg. On Eliquis chronically. States that he has clot behind his knee which will never go away. PHQ-2 / Depression screen He in the past two weeks denies having felt down, depressed, hopeless or with little interest or pleasure in doing things. Overdue for colon cancer screening. Requesting Cologuard. Refusing vaccinations today. states that they are christians and their lo with keep them protected from COVID and other infections. Past medical history, appointments, medications, allergies reviewed. Previous Medical History PAST MEDICAL HISTORY Diagnosis Date BPH (benign prostatic hyperplasia) Diabetes mellitus type II (HCC) Elevated prostate specific antigen (PSA) Essential hypertension Gout History of DVT (deep vein thrombosis) 2020 Right leg Hyperlipidemia Obesity RANDOLPH on CPAP Right leg swelling Chronic since DVT 2020 Previous Surgical History No past surgical history on file. Family History No family history on file. Patient Allergies ALLERGIES Not on File Current Medications Current Outpatient Medications on File Prior to Visit Medication Sig candesartan (ATACAND) 16 mg tablet Take 16 mg by mouth once daily. cyclobenzaprine (FLEXERIL) 10 mg tablet Take by mouth three times daily as needed for muscle spasm. apixaban (ELIQUIS) 2.5 mg tab(s) Take by mouth twice daily. glipiZIDE (GLUCOTROL) 10 mg tablet Take 10 mg by mouth twice daily before meals. atorvastatin (LIPITOR) 40 mg tablet Take 40 mg by mouth once daily. labetalol (TRANDATE) 200 mg tablet Take 200 mg by mouth once daily. allopurinol (ZYLOPRIM) 300 mg tablet Take 300 mg by mouth once daily. MULTIVIT 13-[id number] 1-DHA ORAL Take by mouth. ubidecarenone/vitamin E mixed (COQ10 SG 100 ORAL) Take 1 capsule by mouth. 300mg daily Acetaminophen 500 mg cap Take 500 mg by mouth as needed. saw palmetto 320 mg capsule Take 1 capsule by mouth once daily. CHONDROITIN SULFATE A ORAL Take by mouth. Ascorbic Acid (VITAMIN C) 500 mg chew Take 500 mg by mouth once daily. sour wood extract (TART WOOD EXTRACT ORAL) Take 3,000 mg by mouth once daily. COLLAGEN MISC 0.5 Scoops once daily. No current facility-administered medications on file prior to visit. Social History Social History Tobacco Use Smoking status: Never Smokeless tobacco: Never Review of Symptoms REVIEW OF SYSTEMS GENERAL: No weight loss, malaise or fevers RESPIRATORY: Negative for cough, hemoptysis, wheezing, COPD, dyspnea or shortness of breath CARDIOVASCULAR: Negative for chest pain, leg swelling, hypertension, CHF or palpitations GI: No nausea, vomiting, or diarrhea SKIN: Negative for lesions, rash, and itching EXAM: BP 138/76 Pulse 64 Resp 16 Ht 182.9 cm (6') Wt 112.4 kg (247 lb 12.8 oz) SpO2 97% BMI 33.61 kg/m? General Appearance: Well appearing, alert, in no acute distress, well-hydrated, well nourished. and Obese. Skin: flat red rash on right riley without excoriations, vesicles, papules, ulceration, flucutance. . Lungs: Lungs clear to auscultation. No wheezing, rhonchi, rales.. Heart: RRR without murmur, gallop, or rubs. No ectopy. Abdomen: Normal abdominal exam, Abdomen soft, non-tender. Bowel sounds normal. No masses, organomegaly. Extremities: right leg swollen chronically. Venous stasis changes below right knee. Health Maintenance List COVID-19 VACCINE(1) Never done HEPATITIS C SCREENING Never done HIV SCREENING Never done DTAP,TDAP,TD(1 - Tdap) Never done SHINGRIX VACCINE(1 of 2) Never done COLORECTAL CANCER SCREENING due on 10/17/2018 DEPRESSION ASSESSMENT Never done ADVANCE DIRECTIVE DISCUSSION Never done (more content not included)... [facility] 01-06-2023 History of Presen t illness Narrative Chief Complaint Patient presents with: Establish Care HPI Julian Rosario Mehdi Lopez. is a 67 year old AA male who presents here today for Above Complaints. Previous PCP Dr. Snyder in [place]. Moved to [place] in 2019 and had been doing telehealth visits until last April. Accompanied today by and son. Patient states that he has wound on right lower leg he would like checked today. Started about a month ago. States that the area is raw and will bleed onto his socks. Treating with hector butter. Denies fever/chills, spreading redness, purulent drainage, warmth to touch. Patient due for repeat labs to monitor his diabetes. States this was 6.5 on current regimen. Taking Glipizide BID as directed. Got diarrhea with metformin, so has not been on this. Not checking sugars on a daily basis, needs supplies. History of RANDOLPH, but has not been on CPAP since 2013. States that he could not afford it before. states that he snores loudly at night. Denies daytime somnolence or apneic episodes. Requesting auto pap. Gout: no flares in more than a year with Allopurinol and tart wood extract. History of DVT in right lower leg. On Eliquis chronically. States that he has clot behind his knee which will never go away. PHQ-2 / Depression screen He in the past two weeks denies having felt down, depressed, hopeless or with little interest or pleasure in doing things. Overdue for colon cancer screening. Requesting Cologuard. Refusing vaccinations today. states that they are christians and their lo with keep them protected from COVID and other infections. Past medical history, appointments, medications, allergies reviewed. Previous Medical History PAST MEDICAL HISTORY Diagnosis Date BPH (benign prostatic hyperplasia) Diabetes mellitus type II (HCC) Elevated prostate specific antigen (PSA) Essential hypertension Gout History of DVT (deep vein thrombosis) 2020 Right leg Hyperlipidemia Obesity RANDOLPH on CPAP Right leg swelling Chronic since DVT 2020 Previous Surgical History No past surgical history on file. Family History No family history on file. Patient Allergies ALLERGIES Not on File Current Medications Current Outpatient Medications on File Prior to Visit Medication Sig candesartan (ATACAND) 16 mg tablet Take 16 mg by mouth once daily. cyclobenzaprine (FLEXERIL) 10 mg tablet Take by mouth three times daily as needed for muscle spasm. apixaban (ELIQUIS) 2.5 mg tab(s) Take by mouth twice daily. glipiZIDE (GLUCOTROL) 10 mg tablet Take 10 mg by mouth twice daily before meals. atorvastatin (LIPITOR) 40 mg tablet Take 40 mg by mouth once daily. labetalol (TRANDATE) 200 mg tablet Take 200 mg by mouth once daily. allopurinol (ZYLOPRIM) 300 mg tablet Take 300 mg by mouth once daily. MULTIVIT 25-JNWM-IVDERS 1-DHA ORAL Take by mouth. ubidecarenone/vitamin E mixed (COQ10 SG 100 ORAL) Take 1 capsule by mouth. 300mg daily Acetaminophen 500 mg cap Take 500 mg by mouth as needed. saw palmetto 320 mg capsule Take 1 capsule by mouth once daily. CHONDROITIN SULFATE A ORAL Take by mouth. Ascorbic Acid (VITAMIN C) 500 mg chew Take 500 mg by mouth once daily. sour wood extract (TART WOOD EXTRACT ORAL) Take 3,000 mg by mouth once daily. COLLAGEN MISC 0.5 Scoops once daily. No current facility-administered medications on file prior to visit. Social History Social History Tobacco Use Smoking status: Never Smokeless tobacco: Never Review of Symptoms REVIEW OF SYSTEMS GENERAL: No weight loss, malaise or fevers RESPIRATORY: Negative for cough, hemoptysis, wheezing, COPD, dyspnea or shortness of breath CARDIOVASCULAR: Negative for chest pain, leg swelling, hypertension, CHF or palpitations GI: No nausea, vomiting, or diarrhea SKIN: Negative for lesions, rash, and itching EXAM: BP 138/76 Pulse 64 Resp 16 Ht 182.9 cm (6') Wt 112.4 kg (247 lb 12.8 oz) SpO2 97% BMI 33.61 kg/m General Appearance: Well appearing, alert, in no acute distress, well-hydrated, well nourished. and Obese. Skin: flat red rash on right riley without excoriations, vesicles, papules, ulceration, flucutance. . Lungs: Lungs clear to auscultation. No wheezing, rhonchi, rales.. Heart: RRR without murmur, gallop, or rubs. No ectopy. Abdomen: Normal abdominal exam, Abdomen soft, non-tender. Bowel sounds normal. No masses, organomegaly. Extremities: right leg swollen chronically. Venous stasis changes below right knee. Health Maintenance List COVID-19 VACCINE(1) Never done HEPATITIS C SCREENING Never done HIV SCREENING Never done DTAP,TDAP,TD(1 - Tdap) Never done SHINGRIX VACCINE(1 of 2) Never done COLORECTAL CANCER SCREENING due on 10/17/2018 DEPRESSION ASSESSMENT Never done ADVANCE DIRECTIVE DISCUSSION Never done PNEUMOCOCCAL: 67+(1 - PCV) Never done INFLUENZA(Season Ended) due on 03/28/2023 DIABETES SCREEN due on 05/08/2025 LIPID SCREEN due on 05/08/2027 PROSTATE CANCER SCREENING DISCUSSION due on 05/08/2027 ASSESSMENT/PLAN: 1. Rash - ICD9: 782.1, ICD10: R21 (primary diagnosis) Appears fungal. Treat with clotrimazole BID for 2 weeks or 1 week past resolution of rash. - CLOTRIMAZOLE 1 % TOPICAL CREAM - CLOTRIMAZOLE 1 % TOPICAL CREAM 2. Diabetes mellitus type II (HCC) - ICD9: 250.00, ICD10: E11.9 - Control undetermined, due for labs - Continue current medications - Blood glucose monitoring on a twice daily schedule - Counseled on healthy diet and regular exercise - Discussed need for and benefit of weight loss. BMI 33.61 kg/(m^2) - Discussed diabetic education issues of diabetes complications and monitoring required, hypoglycemic/hyperglycemic symptoms, and medication-specific side effects and monitoring - Follow up in 1 months, sooner should any other issues arise. - CBC + DIFF - COMP METABOLIC PANEL - HGB A1C - ALBUMIN/CREAT RATIO RND UR - LIPID PANEL, NONFASTING - BLOOD-GLUCOSE METER KIT - BLOOD GLUCOSE TEST STRIPS - LANCETS 3. Essential hypertension - ICD9: 401.9, ICD10: I10 - Controlled - Continue current medications - Recommend home blood pressure monitoring, to bring results to next visit - Encouraged sodium restriction, DASH or Mediterranean diet - Recommend regular aerobic exercise 4. Chronic gout without tophus, unspecified cause, unspecified site - ICD9: 274.02, ICD10: M1A.9XX0 No recent flare. Check - URIC ACID BLOOD 5. Hyperlipidemia, unspecified hyperlipidemia type - ICD9: 272.4, ICD10: E78.5 - Control undetermined, due for labs - Continue current medications - Counseled on healthy diet and regular exercise 6. Class 1 obesity due to excess calories with serious comorbidity and body mass index (BMI) of 33.0 to 33.9 in adult - ICD9: 278.00, V85.33, ICD10: E66.09, Z68.33 - Behavioral intervention 7. RANDOLPH on CPAP - ICD9: 327.23, V46.8, ICD10: G47.33, Z99.89 Remains symptomatic without CPAP. Will start auto pap. Snoring not improving, will obtain pap titration. - CPAP/BIPAP/OTHER 8. 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 Requesting rx for compression stockings. - COMPRESSION STOCKINGS 9. Elevated PSA - ICD9: 790.93, ICD10: R97.20 recheck - PSA/PROSTSPECAG DIAG 10. Screening for colon cancer - ICD9: V76.51, ICD10: Z12.11 - COLOGUARD 11. Chronic deep vein thrombosis (DVT) of lower extremity, unspecified laterality, unspecified vein (HCC) - ICD9: 453.50, ICD10: I82.509 Continue anticoagulation. Yelena Merrill MD documented in this encounter [facility] 08-16-2022 History of Presen t illness Narrative Patient is here for an elevated PSA..Most recent PSA was 5.6, Previous PSAs were 5.69 (2018) 5.5 (08/16) 4.56 (05/18)..Patient had a prostate Bx 01/13 that was Benign. Patient has had an elevated PSA.Chronic BPH with LUts, sx are mild and stable..No medications for LUTs, No hematuria, No dysuria..ED is mild [facility]X-Lrn[facility]kyip[facility] Work Phone: documented in this encounter [facility] note* Diagnosis Elevated PSA- Primary Elevated prostate specific antigen (PSA) Hyperkalemia Hyperpotassemia Elevated alkaline phosphatase level Other nonspecific abnormal serum enzyme levels ESTRELLA (acute kidney injury) (HCC) Acute kidney failure, unspecified documented in this encounter [facility] note* Diagnosis Elevated PSA- Primary Elevated prostate specific antigen (PSA) Elevated alkaline phosphatase level Other nonspecific abnormal serum enzyme levels documented in this encounter [facility] note* Diagnosis Diabetes mellitus type II (HCC)- Primary Essential hypertension Unspecified essential hypertension Elevated prostate specific antigen (PSA) Rash Rash and other nonspecific skin eruption Chronic deep vein thrombosis (DVT) of distal vein of right lower extremity (HCC) Right leg swelling Swelling of limb documented in this encounter [facility] note* Diagnosis Diabetes mellitus type II (HCC)- Primary documented in this encounter [facility] note* Diagnosis Venous stasis dermatitis of right lower extremity- Primary Wound of right lower extremity, initial encounter documented in this encounter [facility] note* Diagnosis Venous stasis dermatitis of right lower extremity- Primary Wound of right lower extremity, initial encounter Pain and swelling of lower leg, right documented in this encounter [facility] note* Diagnosis Venous stasis dermatitis of right lower extremity Wound of right lower extremity, initial encounter documented in this encounter [facility] note* Diagnosis Wound of right lower extremity, initial encounter- Primary Venous stasis dermatitis of right lower extremity documented in this encounter [facility] for referral (narrative)* Diagnostic Procedure Only (Routine) - Pending Review Specialty Diagnoses / Procedures Referred By Mariela t Referred To Contact US IMAGING Diagnoses ESTRELLA (acute kidney injury) (HCC) Procedures US KIDNEY/BLADDER US RETROPERITONEAL REAL TIME W/IMAGE COMPLETE Yelena Merrill MD [address] [place] [address] Us Imaging Referral ID Status Reason Start Date Expiration Date Visits Requested Visits Authorized [id number] Pending Review Auto-Generat ed Referral 01/08/2023 02/07/2024 1 1 * Consult, Test, Treat (Routine) - Pending Review Specialty Diagnoses / Procedures Referred By [place] t Referred To Contact Urology Diagnoses Elevated PSA Procedures CONSULT TO UROLOGY OFFICE/OUTPATIENT NEW HIGH MDM 60-74 MINUTES Yelena Merrill MD [address] [place] [address] Referral ID Status Reason Start Date Expiration Date Visits Requested Visits Authorized [id number] Pending Review PCP Requested Referral 01/08/2023 01/08/2024 1 1 [facility] for referral (narrative)* Diagnostic Procedure Only (Routine) - Pending Review Specialty Diagnoses / Procedures Referred By Mariela t Referred To Contact US IMAGING Diagnoses Elevated alkaline phosphatase level Procedures US ABD RIGHT UPPER QUADRANT US ABDOMINAL REAL TIME W/IMAGE LIMITED Yelena Merrill MD [address] [place] [address] Us Imaging Referral ID Status Reason Start Date Expiration Date Visits Requested Visits Authorized [id number] Pending Review Auto-Generat ed Referral 01/23/2023 02/22/2024 1 1 T [facility] for referral (narrative)* Diagnostic Procedure Only (Routine) - Pending Review Specialty Diagnoses / Procedures Referred By Mariela matthew Referred To Contact US IMAGING Diagnoses Venous stasis dermatitis of right lower extremity Wound of right lower extremity, initial encounter Procedures US VENOUS REFLUX BILATERAL DUP-SCAN XTR VEINS COMPLETE BILATERAL STUDY Yelena Merrill MD [address] [place] [address] [place] [id number] Referral ID Status Reason Start Date Expiration Date Visits Requested Visits Authorized [id number] Pending Review Auto-Generat ed Referral 03/19/2023 04/17/2024 1 1 [facility] for referral (narrative)* Diagnostic Procedure Only (Routine) - Pending Review Specialty Diagnoses / Procedures Referred By [place] t Referred To Contact US IMAGING Diagnoses Venous stasis dermatitis of right lower extremity Wound of right lower extremity, initial encounter Pain and swelling of lower leg, right Procedures US VENOUS REFLUX BILATERAL DUP-SCAN XTR VEINS COMPLETE BILATERAL STUDY Yelena Merrill MD [address] [place] [address] [place] [address] Referral ID Status Reason Start Date Expiration Date Visits Requested Visits Authorized [id number] Pending Review Auto-Generat ed Referral 04/03/2023 05/02/2024 1 1 [facility] Reason for Referral Specialty Diagnoses / Procedures Referred By Mariela matthew Referred To Contact Ophthalmology Diagnoses Diabetes mellitus type II (HCC) Procedures CONSULT TO OPHTHALMOLOGY OFFICE/OUTPATIENT [facility] 60-74 MINUTES Yelena Merrill MD [address] [place] [address] Referral ID Status Reason Start Date Expiration Date Visits Requested Visits Authorized [id number] Pending Review PCP Requested Referral 02/04/2023 02/04/2024 1 1 Chief Complaint Elevated PSA Summary Purpose Family History No Family History Records Found Advance Directives No Advanced Directives Records FoundNo Advanced Directives Records FoundNo Advanced Directives Records Found Additional Source Comments Source Comments (unrecognize d section and content) In the event this informatio n is protected by the Federal Confidentiality of Alcohol and Drug Abuse Patient Records regulations: The Federal rules restrict any use of the information to criminally investigate or prosecute any alcohol or drug abuse patient.[facility] the event this information is protected by the Federal Confidentiality of Alcohol and Drug Abuse Patient Records regulations: The Federal rules restrict any use of the information to criminally investigate or prosecute any alcohol or drug abuse patient.[facility] the event this information is protected by the Federal Confidentiality of Alcohol and Drug Abuse Patient Records regulations: The Federal rules restrict any use of the information to criminally investigate or prosecute any alcohol or drug abuse patient.[facility] the event this information is protected by the Federal Confidentiality of Alcohol and Drug Abuse Patient Records regulations: The Federal rules restrict any use of the information to criminally investigate or prosecute any alcohol or drug abuse patient.[facility] the event this information is protected by the Federal Confidentiality of Alcohol and Drug Abuse Patient Records regulations: The Federal rules restrict any use of the information to criminally investigate or prosecute any alcohol or drug abuse patient.[facility] the event this information is protected by the Federal Confidentiality of Alcohol and Drug Abuse Patient Records regulations: The Federal rules restrict any use of the information to criminally investigate or prosecute any alcohol or drug abuse patient.[facility] the event this information is protected by the Federal Confidentiality of Alcohol and Drug Abuse Patient Records regulations: The Federal rules restrict any use of the information to criminally investigate or prosecute any alcohol or drug abuse patient.[facility] the event this information is protected by the Federal Confidentiality of Alcohol and Drug Abuse Patient Records regulations: The Federal rules restrict any use of the information to criminally investigate or prosecute any alcohol or drug abuse patient.[facility] the event this information is protected by the Federal Confidentiality of Alcohol and Drug Abuse Patient Records regulations: The Federal rules restrict any use of the information to criminally investigate or prosecute any alcohol or drug abuse patient.[facility] the event this information is protected by the Federal Confidentiality of Alcohol and Drug Abuse Patient Records regulations: The Federal rules restrict any use of the information to criminally investigate or prosecute any alcohol or drug abuse patient.[facility] the event this information is protected by the Federal Confidentiality of Alcohol and Drug Abuse Patient Records regulations: The Federal rules restrict any use of the information to criminally investigate or prosecute any alcohol or drug abuse patient.[facility] the event this information is protected by the Federal Confidentiality of Alcohol and Drug Abuse Patient Records regulations: The Federal rules restrict any use of the information to criminally investigate or prosecute any alcohol or drug abuse patient.[facility] the event this information is protected by the Federal Confidentiality of Alcohol and Drug Abuse Patient Records regulations: The Federal rules restrict any use of the information to criminally investigate or prosecute any alcohol or drug abuse patient.[facility] the event this information is protected by the Federal Confidentiality of Alcohol and Drug Abuse Patient Records regulations: The Federal rules restrict any use of the information to criminally investigate or prosecute any alcohol or drug abuse patient.[facility] Reason for Visit (unrecogniz ed section and content) Reason Comments Results Reason Comments Results Reason Comments Follow Up DM Reason Comments testing strips Reason Comments Wound Check Reason Comments Opened In Error Reason Comments Referral for Wound Center [facility] Reason Comments Change Of Order Reason Comments wound care problems Reason Onset Date Comments Refill Request 06/09/2023 Care Teams (unrecognized sec tion and content) Dental Scheduler Relationship Specialty Start Date End Date Yelena Merrill MD [address] [place], [place] [phone] PCP - General Family Medicine 01/06/23 Dental Scheduler Relationship Specialty Start Date End Date Yelena Merrill MD [address] [place], [place] [id number] PCP - General Family Medicine 01/06/23 Dental Scheduler Relationship Specialty Start Date End Date Yelena Merrill MD [address] [place], [place] [id number] PCP - General Family Medicine 01/06/23 Dental Scheduler Relationship Specialty Start Date End Date Yelena Merrill MD [address] [place], [place] [id number] PCP - General Family Medicine 01/06/23 Dental Scheduler Relationship Specialty Start Date End Date Yelena Merrill MD [address] [place], [place] [phone] PCP - General Family Medicine 01/06/23 Dental Scheduler Relationship Specialty Start Date End Date Yelena Merrill MD [address] [place] [address] PCP - General Family Medicine 01/06/23 Dental Scheduler Relationship Specialty Start Date End Date Yelena Merrill MD [address] [place] [address] PCP - General Family Medicine 01/06/23 Dental Scheduler Relationship Specialty Start Date End Date Yelena Merrill MD [address] [place] [address] PCP - General Family Medicine 01/06/23 Dental Scheduler Relationship Specialty Start Date End Date Yelena Merrill MD [address] [place] [address] PCP - General Family Medicine 01/06/23 Dental Scheduler Relationship Specialty Start Date End Date Yelena Merrill MD [address] [place] [address] PCP - General Family Medicine 01/06/23 (unrecognized sect ion and content) No Status Records FoundNo Status Records FoundNo Status Records Found INFORMATION SOURCE (unrecogn ized section and content) DATE CREATED AUTHOR AUTHOR'S ORGANIZ ATION 02/13/2023 [employer] DATE CREATED AUTHOR AUTHOR'S ORGANIZ ATION 08/23/2023 [facility] FOR RECORDS PERTAINING TO PATIENTS WHO ARE OR HAVE BEEN ENROLLED IN A CHEMICAL DEPENDENCY/SUBSTANCEABUSE PROGRAM, SOME INFORMATION MAY BE OMITTED. This clinical summary was aggregated from multiple sources. Caution should be exercised in using it in the provision of clinical care. This summary normalizes information from multiple sources, and as a consequence, information in this document may materially change the coding, format and clinical context of patient data. In addition, data may be omitted in some cases. CLINICAL DECISIONS SHOULD BE BASED ON THE PRIMARY CLINICAL RECORDS. [facility] [employer] [facility]. provides no warranty or guarantee of the accuracy or completeness of information in this document.
== END | disposition home or self-care (01) ==
LOC: LABSPEC 10:05
PROVIDERS: PCP Family Medicine; Referring Provider Nurse Practitioner Family; Visit Provider Nurse Practitioner Family
DX: R10.11 Right upper quadrant pain (principal)
CPT/HCPCS: 83690